=== PATIENT | female | born 1930 | race African-American/Black ===

== ENCOUNTER 2017-10-02 13:20 | Inpatient (IN) | payer OTHER ==
[~2017-10-02] VITALS: Ht 170.2 cm; Wt 86.4 kg
[~2017-10-02 13:20] MED LIST: INSULIN; METFORMIN; VERAPAMIL
[2017-10-02] MEDS ORDERED: SODIUM CHLORIDE 0.9% 1,000 ML IV ONE (13:40)
[2017-10-02] MEDS ORDERED: SODIUM CHLORIDE 0.9% 1,000 ML IVB ONE (13:40)
[2017-10-02 14:37] LABS: Basophils # (auto) 0 uL; Basophils % (auto) 0.1 % (0.0-2.0); Eosinophils # (auto) 0 uL; Hematocrit 31.8 % (36.0-46.0); Lymphocytes # (auto) 0.8 uL; Lymphocytes % (auto) 4.8 % (10.0-50.0); Mean Corpuscular Hemoglobin 30.2 pg (28.0-32.0); Mean Corpuscular Hgb Conc. 31.5 g/dL (32.0-36.0); Monocytes # (auto) 0.5 uL; Neutrophils # (auto) 16.3 uL; Neutrophils % (auto) 92.1 % (37.0-80.0); Nucleated Red Blood Cells % 0.1 %; Platelet Count (auto) 376 10^3/uL (140-450); Red Blood Cells 3.32 10^6/uL (4.0-5.20); Red Cell Distribution Width 17.6 % (11.8-14.3); White Blood Cell 17.7 10^3/uL (4.4-10.8)
[2017-10-02 14:47] LABS: Urine Bacteria MOD /hpf (None Seen); Urine Blood 1+ /uL (Negative); Urine Mucus FEW (None Seen); Urine Specific Gravity 1.029 (1.001-1.035); Urine WBC 280 /hpf (0 - 5)
[2017-10-02 14:51] LABS: INR 1.16 (0.9-1.15); Partial Thromboplastin Time 23.6 sec (22.64-33.71); Prothrombin Time 12.7 sec (9.37-12.3)
[2017-10-02 14:57] LABS: Lactic Acid w/Reflex 2.6 mmol/L (0.4-2.0)
[2017-10-02] MEDS: ACCU-CHEK COMFORT CURVE STRIP VI SCH ×6 (15:00→22:30)
[2017-10-02] MEDS ORDERED: DEXTROSE (50%) 50ML SYRG IV PRN (15:00)
[2017-10-02] MEDS: InsuLIN R (HUMAN) 100 UNITS in SODIUM CHL 0.9% 99 ML IV SCH (15:35)
[2017-10-02 15:57] LABS: Albumin 1.7 g/dL (3.4-5.0); Anion Gap 12 (5-15); Blood Urea Nitrogen 36 mg/dL (7-18); Calcium 10.6 mg/dL (8.5-10.1); Carbon Dioxide 28 mmol/L (21-32); Chloride 99 mmol/L (98-107); Sodium 139 mmol/L (136-145)
[2017-10-02 15:59] LABS: Alanine Aminotransferase 13 U/L (13-56); Aspartate Aminotransferase 19 U/L (15-37); BUN/Creatinine Ratio 37.5; GFR African American 71 mL/min; GFR Non-African American 58 mL/min
[2017-10-02 16:02] LABS: Alkaline Phosphatase 94 U/L (45-117); Bilirubin, Total 0.6 mg/dL (0.2-1.0); Total Protein 6.3 g/dL (6.4-8.2)
[2017-10-02 16:09] LABS: Glucose 468 mg/dL (74-106)
[2017-10-02] MEDS ORDERED: VANCOMYCIN 1GM/250ML 250 ML IV ONE (16:15)
[2017-10-02] MEDS ORDERED: LEVOFLOXACIN 500MG 100 ML IV ONE (16:15)
[2017-10-02] MEDS ORDERED: VANCOMYCIN PER PHARMACY 0 MG IV SCH (17:00)
[2017-10-02] MEDS ORDERED: NITROGLYCERIN 0.4 MG SL TAB SL PRN (17:15)
[2017-10-02] MEDS ORDERED: ONDANSETRON HCL 4 MG/2 ML VIAL IV PRN (17:15)
[2017-10-02] MEDS ORDERED: ACETAMINOPHEN 325 MG TAB PO PRN (17:15)
[2017-10-02] MEDS ORDERED: POTASSIUM CHLORIDE 20 MEQ, LIDOCAINE 1% (LOCAL ANESTH.) 2 ML in SODIUM CHL 0.9% 100 ML IV ONE (17:15)
[2017-10-02] MEDS ORDERED: MULTIPLE VITAMIN TAB PO ONE (17:30)
[2017-10-02] MEDS ORDERED: ASPirin-EC 81 mg tab PO ONE (17:30)
[2017-10-02] MEDS ORDERED: ENOXAPARIN SOD 40 MG/0.4 ML SYRINGE SC ONE (17:30)
[2017-10-02] MEDS ORDERED: ZINC SULFATE 220 MG CAP PO ONE (17:30)
[2017-10-02 19:38] LABS: Lactic Acid w/Reflex 5.7 mmol/L (0.4-2.0)
[2017-10-02] MEDS: Boost Glucose Control 8 Ounces PO SCH ×2 (20:10→22:00)
[2017-10-02] MEDS: ATORVASTATIN 20 MG TAB PO SCH (22:12)
[2017-10-02] MEDS: ASCORBIC ACID 500 MG TAB PO SCH (22:13)
[2017-10-02] MEDS: FAMOTIDINE 20 MG TAB PO SCH (22:13)
[2017-10-03] MEDS: ACCU-CHEK COMFORT CURVE STRIP VI SCH ×9 (01:38→22:31)
[2017-10-03 03:37] LABS: Basophils # (auto) 0.1 uL; Basophils % (auto) 0.3 % (0.0-2.0); Eosinophils # (auto) 0.1 uL; Eosinophils % (auto) 0.3 % (0.0-7.0); Lymphocytes # (auto) 0.9 uL; Lymphocytes % (auto) 4.8 % (10.0-50.0); Mean Corpuscular Hemoglobin 30.5 pg (28.0-32.0); Mean Corpuscular Hgb Conc. 32.1 g/dL (32.0-36.0); Monocytes # (auto) 0.6 uL; Monocytes % (auto) 3.3 % (0.0-12.0); Neutrophils # (auto) 16.7 uL; Neutrophils % (auto) 91.3 % (37.0-80.0); Platelet Count (auto) 342 10^3/uL (140-450); Red Blood Cells 2.94 10^6/uL (4.0-5.20); White Blood Cell 18.3 10^3/uL (4.4-10.8)
[2017-10-03 03:53] LABS: Albumin 1.5 g/dL (3.4-5.0); BUN/Creatinine Ratio 59.3; Calcium 9.9 mg/dL (8.5-10.1)
[2017-10-03 03:55] LABS: Potassium 2.8 mmol/L (3.5-5.1)
[2017-10-03 03:56] LABS: Bilirubin, Total 0.5 mg/dL (0.2-1.0); Total Protein 5.6 g/dL (6.4-8.2)
[2017-10-03] MEDS: VANCOMYCIN 1GM/250ML 250 ML IV SCH ×2 (04:28→16:58)
[2017-10-03] MEDS: POTASSIUM CHL 20MEQ/100ML 100 ML IV SCH ×2 (04:30→07:20)
[2017-10-03] MEDS: HYDROcodone-ACET 5/325MG TAB PO PRN ×3 (05:30→18:00)
[2017-10-03] MEDS: Boost Glucose Control 8 Ounces PO SCH ×4 (06:00→22:00)
[2017-10-03 09:20] VITALS: BP 115/59
[2017-10-03 09:59] VITALS: BP 115/59
[2017-10-03 10:00] VITALS: BP 115/59
[2017-10-03] MEDS: ASCORBIC ACID 500 MG TAB PO SCH ×2 (10:00→22:00)
[2017-10-03] MEDS ORDERED: ACCU-CHEK COMFORT CURVE STRIP VI SCH ×2 (10:00→18:00)
[2017-10-03] MEDS ORDERED: LEVOFLOXACIN 500MG 100 ML IV SCH (10:00)
[2017-10-03] MEDS: MULTIPLE VITAMIN TAB PO SCH (10:00)
[2017-10-03] MEDS: ASPirin-EC 81 mg tab PO SCH (10:00)
[2017-10-03] MEDS: ZINC SULFATE 220 MG CAP PO SCH (10:00)
[2017-10-03] MEDS: ENOXAPARIN SOD 40 MG/0.4 ML SYRINGE SC SCH (10:00)
[2017-10-03] MEDS: FAMOTIDINE 20 MG TAB PO SCH ×2 (10:00→22:00)
[2017-10-03] MEDS: InsuLIN R (HUMAN) 100 UNITS in SODIUM CHL 0.9% 99 ML IV SCH (12:05)
[2017-10-03 12:22] VITALS: BP 120/60
[2017-10-03] MEDS ORDERED: DEXTROSE (50%) 50ML SYRG IV PRN (14:45)
[2017-10-03] MEDS ORDERED: InsuLIN REG 1unit/0.01ml Soln (100units/ml) SC SCH (17:00)
[2017-10-03 17:19] VITALS: BP 122/67
[2017-10-03 22:00] VITALS: BP 147/71
[2017-10-03] MEDS: ATORVASTATIN 20 MG TAB PO SCH (22:00)
[2017-10-03] MEDS: ALBUMIN 25% 100 ML IV SCH (22:26)
[2017-10-03] MEDS: InsuLIN REG 1unit/0.01ml Soln (100units/ml) SC SCH (22:31)
[2017-10-04] MEDS: ACCU-CHEK COMFORT CURVE STRIP VI SCH ×5 (02:00→18:08)
[2017-10-04] MEDS: InsuLIN REG 1unit/0.01ml Soln (100units/ml) SC SCH ×5 (02:02→18:08)
[2017-10-04 04:12] LABS: Basophils # (auto) 0 uL; Basophils % (auto) 0.1 % (0.0-2.0); Eosinophils # (auto) 0.1 uL; Eosinophils % (auto) 0.6 % (0.0-7.0); Hematocrit 28.4 % (36.0-46.0); Lymphocytes # (auto) 1.1 uL; Lymphocytes % (auto) 6.5 % (10.0-50.0); Mean Corpuscular Hemoglobin 30.3 pg (28.0-32.0); Mean Corpuscular Hgb Conc. 31.7 g/dL (32.0-36.0); Mean Corpuscular Volume 95.9 fL (80.0-100.0); Monocytes # (auto) 0.4 uL; Monocytes % (auto) 2.5 % (0.0-12.0); Neutrophils # (auto) 15.1 uL; Neutrophils % (auto) 90.3 % (37.0-80.0); Nucleated Red Blood Cells % 0.1 %; Platelet Count (auto) 328 10^3/uL (140-450); Red Blood Cells 2.96 10^6/uL (4.0-5.20); Red Cell Distribution Width 16.9 % (11.8-14.3); White Blood Cell 16.7 10^3/uL (4.4-10.8)
[2017-10-04] MEDS: VANCOMYCIN 1GM/250ML 250 ML IV SCH ×2 (04:55→16:00)
[2017-10-04 05:00] VITALS: BP 150/70
[2017-10-04] MEDS: Boost Glucose Control 8 Ounces PO SCH ×4 (06:00→22:00)
[2017-10-04] MEDS: ALBUMIN 25% 100 ML IV SCH ×3 (06:22→23:44)
[2017-10-04 07:38] LABS: Albumin 1.9 g/dL (3.4-5.0); BUN/Creatinine Ratio 50.8; Bilirubin, Total 0.5 mg/dL (0.2-1.0); Calcium 10.4 mg/dL (8.5-10.1); Potassium 3.1 mmol/L (3.5-5.1); Total Protein 5.5 g/dL (6.4-8.2)
[2017-10-04 08:00] VITALS: BP 127/66
[2017-10-04 09:25] VITALS: BP 127/66
[2017-10-04] MEDS: ENOXAPARIN SOD 40 MG/0.4 ML SYRINGE SC SCH (10:00)
[2017-10-04] MEDS: ASCORBIC ACID 500 MG TAB PO SCH ×2 (10:00→22:00)
[2017-10-04] MEDS: ZINC SULFATE 220 MG CAP PO SCH (10:00)
[2017-10-04] MEDS: MULTIPLE VITAMIN TAB PO SCH (10:00)
[2017-10-04] MEDS: ASPirin-EC 81 mg tab PO SCH (10:00)
[2017-10-04] MEDS ORDERED: PANTOPRAZOLE 40 MG/10 ML VIAL IV ONE (11:15)
[2017-10-04] MEDS ORDERED: TPN PER PHARMACY 0 ML IV SCH (12:45)
[2017-10-04 12:51] VITALS: BP 151/77
[2017-10-04] MEDS: MORPHINE SULFATE 4 MG/ML SYR/VIAL IV PRN ×2 (13:19→23:42)
[2017-10-04 13:28] LABS: Magnesium 1.2 mg/dL (1.6-2.6)
[2017-10-04] MEDS ORDERED: PPN PER PHARMACY 500 ML IV SCH (13:30)
[2017-10-04] MEDS ORDERED: POTASSIUM PHOSP 26.4MEQ(18MMOL) IN NS 100 ML IV ONE (14:00)
[2017-10-04] MEDS: MEROPENEM 1gm/20ml IVPUSH 20 ML IV SCH ×2 (14:23→23:44)
[2017-10-04 17:14] VITALS: BP 140/59
[2017-10-04] MEDS ORDERED: DEXTROSE (50%) 50ML SYRG IV SCH (18:00)
[2017-10-04] MEDS: MAGNESIUM SULFATE 1GM/100ML 100 ML IV SCH ×2 (19:14→21:17)
[2017-10-04] MEDS ORDERED: PPN PER PHARMACY IV SCH ×8 (20:00)
[2017-10-04] MEDS ORDERED: MAGNESIUM SULFATE 1GM/100ML 100 ML IV ONE (21:11)
[2017-10-04] MEDS: ATORVASTATIN 20 MG TAB PO SCH (22:00)
[2017-10-04] MEDS ORDERED: LINEZOLID 600MG/300ML 300 ML IV SCH (22:00)
[2017-10-04 22:02] VITALS: BP 147/56
[2017-10-05] MEDS: InsuLIN REG 1unit/0.01ml Soln (100units/ml) SC SCH ×4 (00:53→17:51)
[2017-10-05] MEDS: VANCOMYCIN 1GM/250ML 250 ML IV SCH ×2 (04:14→17:21)
[2017-10-05 05:11] VITALS: BP 161/78
[2017-10-05] MEDS: ENALAPRILAT 1.25 MG/ML-1ML VIAL IV PRN (05:19)
[2017-10-05] MEDS: MEROPENEM 1gm/20ml IVPUSH 20 ML IV SCH ×3 (05:34→21:27)
[2017-10-05] MEDS: ALBUMIN 25% 100 ML IV SCH ×3 (05:35→21:53)
[2017-10-05] MEDS: MORPHINE SULFATE 4 MG/ML SYR/VIAL IV PRN ×4 (05:50→20:10)
[2017-10-05] MEDS: Boost Glucose Control 8 Ounces PO SCH ×4 (06:00→22:00)
[2017-10-05] MEDS: ACCU-CHEK COMFORT CURVE STRIP VI SCH ×4 (06:21→17:50)
[2017-10-05 08:35] LABS: Basophils # (auto) 0 uL; Basophils % (auto) 0.1 % (0.0-2.0); Eosinophils # (auto) 0.2 uL; Hemoglobin 7.8 g/dL (12.2-16.2); Monocytes # (auto) 0.3 uL; Neutrophils % (auto) 88.1 % (37.0-80.0); Nucleated Red Blood Cells % 0.1 %; Platelet Count (auto) 262 10^3/uL (140-450); White Blood Cell 13.1 10^3/uL (4.4-10.8)
[2017-10-05 08:37] LABS: Eosinophils % (auto) 1.2 % (0.0-7.0); Hematocrit 25.1 % (36.0-46.0); Lymphocytes # (auto) 1.1 uL; Lymphocytes % (auto) 8.2 % (10.0-50.0); Mean Corpuscular Hemoglobin 29.7 pg (28.0-32.0); Mean Corpuscular Hgb Conc. 31.1 g/dL (32.0-36.0); Mean Corpuscular Volume 95.4 fL (80.0-100.0); Monocytes % (auto) 2.4 % (0.0-12.0); Neutrophils # (auto) 11.6 uL; Red Blood Cells 2.63 10^6/uL (4.0-5.20); Red Cell Distribution Width 17.2 % (11.8-14.3)
[2017-10-05 08:52] LABS: Albumin 2.8 g/dL (3.4-5.0); BUN/Creatinine Ratio 34.5; Bilirubin, Total 0.6 mg/dL (0.2-1.0); Calcium 9.9 mg/dL (8.5-10.1); Magnesium 1.6 mg/dL (1.6-2.6); Phosphorus 1.7 mg/dL (2.5-4.90); Pre Albumin 6.4 mg/dL (20.0-40.0); Total Protein 5.5 g/dL (6.4-8.2)
[2017-10-05 08:56] LABS: Potassium 2.7 mmol/L (3.5-5.1)
[2017-10-05] MEDS: ZINC SULFATE 220 MG CAP PO SCH (09:16)
[2017-10-05] MEDS: MULTIPLE VITAMIN TAB PO SCH (09:17)
[2017-10-05] MEDS: ASPirin-EC 81 mg tab PO SCH (09:17)
[2017-10-05] MEDS: ASCORBIC ACID 500 MG TAB PO SCH ×2 (09:17→22:00)
[2017-10-05 09:18] VITALS: BP 147/67
[2017-10-05] MEDS: ENOXAPARIN SOD 30 MG/0.3 ML SYRINGE SC SCH (09:18)
[2017-10-05] MEDS: PANTOPRAZOLE 40 MG/10 ML VIAL IV SCH (09:18)
[2017-10-05] MEDS ORDERED: POTASSIUM PHOSP 26.4MEQ(18MMOL) IN NS 100 ML IV ONE (10:15)
[2017-10-05] MEDS: HYDROcodone-ACET 5/325MG TAB PO PRN (10:58)
[2017-10-05] MEDS: HYDROcodone-ACET 10/325MG TAB PO PRN ×3 (11:21→18:54)
[2017-10-05 13:14] VITALS: BP 116/80
[2017-10-05 16:58] VITALS: BP 94/58
[2017-10-05] MEDS: PRO-STAT 64 30ML PO SCH (18:54)
[2017-10-05] MEDS ORDERED: MAGNESIUM SULF IV NR ×8 (20:00)
[2017-10-05] MEDS ORDERED: POTASSIUM PHOSPHATE IV NR ×8 (20:00)
[2017-10-05] MEDS ORDERED: [UNRECOGNIZED DRUG - OTHER] IV NR ×8 (20:00)
[2017-10-05] MEDS ORDERED: FAT EMULSION IV NR ×8 (20:00)
[2017-10-05 21:29] VITALS: BP 155/73
[2017-10-05] MEDS: ATORVASTATIN 20 MG TAB PO SCH (22:00)
[2017-10-06] MEDS: MORPHINE SULFATE 4 MG/ML SYR/VIAL IV PRN ×5 (00:16→18:22)
[2017-10-06] MEDS: ACCU-CHEK COMFORT CURVE STRIP VI SCH ×4 (00:29→18:27)
[2017-10-06] MEDS: InsuLIN REG 1unit/0.01ml Soln (100units/ml) SC SCH ×4 (00:30→18:26)
[2017-10-06] MEDS: VANCOMYCIN 1GM/250ML 250 ML IV SCH ×2 (03:48→18:23)
[2017-10-06 05:10] VITALS: BP 148/71
[2017-10-06] MEDS: MEROPENEM 1gm/20ml IVPUSH 20 ML IV SCH ×2 (05:46→14:00)
[2017-10-06] MEDS: Boost Glucose Control 8 Ounces PO SCH ×3 (05:51→18:00)
[2017-10-06] MEDS: ALBUMIN 25% 100 ML IV SCH ×2 (05:51→15:30)
[2017-10-06 06:20] LABS: Basophils # (auto) 0 uL; Eosinophils # (auto) 0.2 uL; Hemoglobin 8.2 g/dL (12.2-16.2); Neutrophils # (auto) 10.2 uL; Red Blood Cells 2.72 10^6/uL (4.0-5.20)
[2017-10-06 06:22] LABS: Basophils % (auto) 0.1 % (0.0-2.0); Eosinophils % (auto) 1.5 % (0.0-7.0); Hematocrit 25.6 % (36.0-46.0); Lymphocytes # (auto) 1.1 uL; Lymphocytes % (auto) 9.4 % (10.0-50.0); Mean Corpuscular Hemoglobin 30.3 pg (28.0-32.0); Mean Corpuscular Hgb Conc. 32.2 g/dL (32.0-36.0); Mean Corpuscular Volume 94.2 fL (80.0-100.0); Monocytes # (auto) 0.3 uL; Monocytes % (auto) 2.7 % (0.0-12.0); Neutrophils % (auto) 86.3 % (37.0-80.0); Platelet Count (auto) 259 10^3/uL (140-450); Red Cell Distribution Width 16.6 % (11.8-14.3); White Blood Cell 11.8 10^3/uL (4.4-10.8)
[2017-10-06 06:36] LABS: Albumin 2.8 g/dL (3.4-5.0); BUN/Creatinine Ratio 42.6; Bilirubin, Total 0.6 mg/dL (0.2-1.0); Calcium 9.6 mg/dL (8.5-10.1); Magnesium 1.7 mg/dL (1.6-2.6); Phosphorus 2.8 mg/dL (2.5-4.90); Potassium 3.2 mmol/L (3.5-5.1); Total Protein 5.5 g/dL (6.4-8.2)
[2017-10-06 08:00] VITALS: BP 125/87
[2017-10-06] MEDS: PRO-STAT 64 30ML PO SCH ×2 (08:00→18:00)
[2017-10-06 09:19] VITALS: BP 125/87
[2017-10-06] MEDS: ASCORBIC ACID 500 MG TAB PO SCH (10:24)
[2017-10-06] MEDS: ASPirin-EC 81 mg tab PO SCH (10:24)
[2017-10-06] MEDS: ZINC SULFATE 220 MG CAP PO SCH (10:24)
[2017-10-06] MEDS: MULTIPLE VITAMIN TAB PO SCH (10:24)
[2017-10-06] MEDS: ENOXAPARIN SOD 30 MG/0.3 ML SYRINGE SC SCH (10:25)
[2017-10-06] MEDS: PANTOPRAZOLE 40 MG/10 ML VIAL IV SCH (10:25)
[2017-10-06] MEDS: POTASSIUM CHL 20MEQ/100ML 100 ML IV SCH ×2 (12:00→15:23)
[2017-10-06 13:00] VITALS: BP 123/90
[2017-10-06 17:28] VITALS: BP 105/89
[2017-10-06] MEDS ORDERED: POTASSIUM CHL 20MEQ/100ML 100 ML IV SCH (18:00)
[2017-10-06] MEDS ORDERED: PPN PER PHARMACY IV NR ×22 (20:00→21:45)
[2017-10-06 22:00] VITALS: BP 140/107
[2017-10-07] MEDS: ATORVASTATIN 20 MG TAB PO SCH ×2 (00:18→21:43)
[2017-10-07] MEDS: ASCORBIC ACID 500 MG TAB PO SCH ×3 (00:18→21:43)
[2017-10-07] MEDS: MEROPENEM 1gm/20ml IVPUSH 20 ML IV SCH ×4 (00:19→21:37)
[2017-10-07] MEDS: ALBUMIN 25% 100 ML IV SCH ×4 (00:21→21:40)
[2017-10-07] MEDS: Boost Glucose Control 8 Ounces PO SCH ×5 (00:21→21:43)
[2017-10-07] MEDS: MORPHINE SULFATE 4 MG/ML SYR/VIAL IV PRN ×2 (03:30→04:52)
[2017-10-07 05:00] VITALS: BP 126/70
[2017-10-07] MEDS: ACCU-CHEK COMFORT CURVE STRIP VI SCH ×4 (06:00→18:25)
[2017-10-07] MEDS: InsuLIN REG 1unit/0.01ml Soln (100units/ml) SC SCH ×4 (06:00→18:00)
[2017-10-07] MEDS: VANCOMYCIN 1GM/250ML 250 ML IV SCH ×2 (06:13→18:23)
[2017-10-07 07:07] LABS: Albumin 2.6 g/dL (3.4-5.0); BUN/Creatinine Ratio 37.5; Bilirubin, Total 0.6 mg/dL (0.2-1.0); Calcium 8.8 mg/dL (8.5-10.1); Magnesium 1.8 mg/dL (1.6-2.6); Phosphorus 2.2 mg/dL (2.5-4.90); Potassium 3.7 mmol/L (3.5-5.1); Total Protein 5.6 g/dL (6.4-8.2)
[2017-10-07 08:00] VITALS: BP 156/80
[2017-10-07] MEDS: PRO-STAT 64 30ML PO SCH ×2 (08:00→18:00)
[2017-10-07 09:00] VITALS: BP 156/80
[2017-10-07] MEDS: PANTOPRAZOLE 40 MG/10 ML VIAL IV SCH (10:00)
[2017-10-07] MEDS: MULTIPLE VITAMIN TAB PO SCH (10:34)
[2017-10-07] MEDS: ZINC SULFATE 220 MG CAP PO SCH (10:34)
[2017-10-07] MEDS: ASPirin-EC 81 mg tab PO SCH (10:34)
[2017-10-07] MEDS: ENOXAPARIN SOD 30 MG/0.3 ML SYRINGE SC SCH (10:43)
[2017-10-07 12:00] VITALS: BP 121/62
[2017-10-07 12:53] LABS: INR 1.25 (0.9-1.15); Partial Thromboplastin Time 42.9 sec (22.64-33.71); Prothrombin Time 13.7 sec (9.37-12.3)
[2017-10-07] MEDS ORDERED: LIDOCAINE 1% HCL (LOCAL ANESTH.) INJ 20ML MDV ID ONE (15:00)
[2017-10-07 16:00] VITALS: BP 143/78
[2017-10-07] MEDS ORDERED: PPN PER PHARMACY IV NR ×11 (20:00)
[2017-10-07] MEDS: SODIUM CHLOR 0.9% PF (SALINE LOCK) 10ML VIAL IV SCH (21:44)
[2017-10-07 22:00] VITALS: BP 160/84
[2017-10-08 05:00] VITALS: BP 163/74
[2017-10-08] MEDS: MEROPENEM 1gm/20ml IVPUSH 20 ML IV SCH (05:46)
[2017-10-08] MEDS: ALBUMIN 25% 100 ML IV SCH ×3 (05:47→22:51)
[2017-10-08] MEDS: VANCOMYCIN 1GM/250ML 250 ML IV SCH ×2 (05:48→18:00)
[2017-10-08] MEDS: Boost Glucose Control 8 Ounces PO SCH ×4 (05:48→22:45)
[2017-10-08] MEDS: ACCU-CHEK COMFORT CURVE STRIP VI SCH ×5 (06:00→23:30)
[2017-10-08] MEDS: InsuLIN REG 1unit/0.01ml Soln (100units/ml) SC SCH ×5 (06:00→23:31)
[2017-10-08 07:43] LABS: Basophils # (auto) 0 uL; Basophils % (auto) 0.4 % (0.0-2.0); Eosinophils # (auto) 0.2 uL; Eosinophils % (auto) 1.1 % (0.0-7.0); Hematocrit 28.5 % (36.0-46.0); Hemoglobin 9.1 g/dL (12.2-16.2); Lymphocytes # (auto) 1.6 uL; Lymphocytes % (auto) 12.1 % (10.0-50.0); Mean Corpuscular Hemoglobin 30.6 pg (28.0-32.0); Mean Corpuscular Hgb Conc. 32.1 g/dL (32.0-36.0); Mean Corpuscular Volume 95.3 fL (80.0-100.0); Monocytes # (auto) 0.5 uL; Monocytes % (auto) 3.8 % (0.0-12.0); Neutrophils # (auto) 11.2 uL; Neutrophils % (auto) 82.6 % (37.0-80.0); Nucleated Red Blood Cells % 0.7 %; Platelet Count (auto) 297 10^3/uL (140-450); Red Blood Cells 2.99 10^6/uL (4.0-5.20); Red Cell Distribution Width 16.9 % (11.8-14.3); White Blood Cell 13.6 10^3/uL (4.4-10.8)
[2017-10-08 08:00] LABS: Albumin 3.2 g/dL (3.4-5.0); BUN/Creatinine Ratio 39.1; Calcium 9.1 mg/dL (8.5-10.1); Potassium 3.4 mmol/L (3.5-5.1)
[2017-10-08] MEDS: PRO-STAT 64 30ML PO SCH ×2 (08:00→17:32)
[2017-10-08 08:09] LABS: Bilirubin, Total 1.2 mg/dL (0.2-1.0)
[2017-10-08 09:00] VITALS: BP 153/91
[2017-10-08] MEDS ORDERED: TPN PER PHARMACY IV SCH (09:45)
[2017-10-08] MEDS ORDERED: MAGNESIUM SULFATE 1GM/100ML 100 ML IV ONE (09:45)
[2017-10-08] MEDS ORDERED: POTASSIUM CHL 10MEQ/100ML IV ONE (09:45)
[2017-10-08] MEDS: ZINC SULFATE 220 MG CAP PO SCH (10:00)
[2017-10-08] MEDS: MULTIPLE VITAMIN TAB PO SCH (10:00)
[2017-10-08] MEDS: ASPirin-EC 81 mg tab PO SCH (10:00)
[2017-10-08] MEDS: ASCORBIC ACID 500 MG TAB PO SCH ×2 (10:00→22:44)
[2017-10-08] MEDS: PANTOPRAZOLE 40 MG/10 ML VIAL IV SCH (10:23)
[2017-10-08] MEDS: SODIUM CHLOR 0.9% PF (SALINE LOCK) 10ML VIAL IV SCH ×2 (10:23→22:44)
[2017-10-08] MEDS: ENOXAPARIN SOD 30 MG/0.3 ML SYRINGE SC SCH (10:24)
[2017-10-08] MEDS ORDERED: cefTRIAXone 1GM/10ml IVPUSH 10 ML IV ONE (10:30)
[2017-10-08 12:24] VITALS: BP 120/53
[2017-10-08] MEDS: metroNIDAZOLE 500MG/100ML 100 ML IV SCH ×2 (14:38→22:45)
[2017-10-08 16:47] VITALS: BP 189/89
[2017-10-08] MEDS: ENALAPRILAT 1.25 MG/ML-1ML VIAL IV PRN (16:56)
[2017-10-08] MEDS: MORPHINE SULFATE 4 MG/ML SYR/VIAL IV PRN (18:10)
[2017-10-08] MEDS ORDERED: TPN PER PHARMACY IV NR ×9 (20:00)
[2017-10-08 22:00] VITALS: BP 168/71
[2017-10-08] MEDS: ATORVASTATIN 20 MG TAB PO SCH (22:44)
[2017-10-09 04:50] VITALS: BP 152/80
[2017-10-09] MEDS: VANCOMYCIN 1GM/250ML 250 ML IV SCH ×2 (05:44→18:59)
[2017-10-09] MEDS: Boost Glucose Control 8 Ounces PO SCH ×4 (05:45→22:00)
[2017-10-09] MEDS: metroNIDAZOLE 500MG/100ML 100 ML IV SCH ×3 (05:55→22:28)
[2017-10-09] MEDS: ALBUMIN 25% 100 ML IV SCH (05:57)
[2017-10-09] MEDS: ACCU-CHEK COMFORT CURVE STRIP VI SCH ×3 (06:06→18:00)
[2017-10-09] MEDS: InsuLIN REG 1unit/0.01ml Soln (100units/ml) SC SCH ×3 (06:06→18:00)
[2017-10-09 08:06] LABS: Potassium 3.3 mmol/L (3.5-5.1)
[2017-10-09 08:08] LABS: Basophils # (auto) 0.1 uL; Basophils % (auto) 1.1 % (0.0-2.0); Lymphocytes # (auto) 1.1 uL; Lymphocytes % (auto) 11.7 % (10.0-50.0); Nucleated Red Blood Cells % 0.1 %
[2017-10-09 08:11] LABS: Eosinophils # (auto) 0.2 uL; Eosinophils % (auto) 1.6 % (0.0-7.0); Hematocrit 24.8 % (36.0-46.0); Hemoglobin 8.3 g/dL (12.2-16.2); Mean Corpuscular Hemoglobin 31.1 pg (28.0-32.0); Mean Corpuscular Hgb Conc. 33.3 g/dL (32.0-36.0); Mean Corpuscular Volume 93.4 fL (80.0-100.0); Monocytes # (auto) 0.3 uL; Monocytes % (auto) 3.5 % (0.0-12.0); Neutrophils # (auto) 7.8 uL; Neutrophils % (auto) 82.1 % (37.0-80.0); Platelet Count (auto) 303 10^3/uL (140-450); Red Blood Cells 2.65 10^6/uL (4.0-5.20); Red Cell Distribution Width 16.4 % (11.8-14.3); White Blood Cell 9.5 10^3/uL (4.4-10.8)
[2017-10-09 08:21] LABS: Albumin 3.2 g/dL (3.4-5.0); BUN/Creatinine Ratio 42.5; Calcium 8.9 mg/dL (8.5-10.1); Magnesium 1.7 mg/dL (1.6-2.6)
[2017-10-09 08:26] LABS: Bilirubin, Total 0.7 mg/dL (0.2-1.0); Phosphorus 2.4 mg/dL (2.5-4.90); Total Protein 5.4 g/dL (6.4-8.2)
[2017-10-09 09:00] VITALS: BP 151/81
[2017-10-09] MEDS: PANTOPRAZOLE 40 MG/10 ML VIAL IV SCH (09:27)
[2017-10-09] MEDS: MULTIPLE VITAMIN TAB PO SCH (09:27)
[2017-10-09] MEDS: ZINC SULFATE 220 MG CAP PO SCH (09:27)
[2017-10-09] MEDS: ASPirin-EC 81 mg tab PO SCH (09:27)
[2017-10-09] MEDS: ASCORBIC ACID 500 MG TAB PO SCH ×3 (09:27→22:29)
[2017-10-09] MEDS: SODIUM CHLOR 0.9% PF (SALINE LOCK) 10ML VIAL IV SCH ×2 (09:27→22:29)
[2017-10-09] MEDS: cefTRIAXone 1GM/10ml IVPUSH 10 ML IV SCH (09:28)
[2017-10-09] MEDS: PRO-STAT 64 30ML PO SCH ×2 (09:28→18:00)
[2017-10-09] MEDS: ENOXAPARIN SOD 30 MG/0.3 ML SYRINGE SC SCH (09:30)
[2017-10-09] MEDS ORDERED: POTASSIUM PHOSPHATE 44 MEQ in D5W 5% 250 ML IV ONE (09:45)
[2017-10-09 13:00] VITALS: BP 157/82
[2017-10-09 17:00] VITALS: BP 146/83
[2017-10-09] MEDS ORDERED: TPN PER PHARMACY IV NR ×10 (20:00)
[2017-10-09 22:00] VITALS: BP 123/66
[2017-10-09] MEDS: ATORVASTATIN 20 MG TAB PO SCH ×2 (22:00→22:29)
[2017-10-10] MEDS: InsuLIN REG 1unit/0.01ml Soln (100units/ml) SC SCH ×5 (00:07→23:55)
[2017-10-10] MEDS: ACCU-CHEK COMFORT CURVE STRIP VI SCH ×5 (00:08→23:55)
[2017-10-10 05:51] VITALS: BP 155/76
[2017-10-10] MEDS: VANCOMYCIN 1GM/250ML 250 ML IV SCH ×2 (05:52→18:00)
[2017-10-10] MEDS: Boost Glucose Control 8 Ounces PO SCH ×4 (05:57→22:00)
[2017-10-10] MEDS: metroNIDAZOLE 500MG/100ML 100 ML IV SCH ×3 (07:02→22:01)
[2017-10-10 07:47] LABS: Albumin 3.4 g/dL (3.4-5.0); BUN/Creatinine Ratio 31.8; Bilirubin, Total 0.7 mg/dL (0.2-1.0); Calcium 8.9 mg/dL (8.5-10.1); Magnesium 1.8 mg/dL (1.6-2.6); Phosphorus 2.1 mg/dL (2.5-4.90); Potassium 3.4 mmol/L (3.5-5.1); Total Protein 5.8 g/dL (6.4-8.2)
[2017-10-10 08:16] LABS: Basophils # (auto) 0.1 uL; Basophils % (auto) 0.7 % (0.0-2.0); Eosinophils # (auto) 0.2 uL; Eosinophils % (auto) 1.5 % (0.0-7.0); Hematocrit 25.3 % (36.0-46.0); Hemoglobin 8.2 g/dL (12.2-16.2); Lymphocytes # (auto) 1.7 uL; Lymphocytes % (auto) 14.6 % (10.0-50.0); Mean Corpuscular Hemoglobin 29.9 pg (28.0-32.0); Mean Corpuscular Hgb Conc. 32.3 g/dL (32.0-36.0); Mean Corpuscular Volume 92.5 fL (80.0-100.0); Monocytes # (auto) 0.6 uL; Monocytes % (auto) 5.5 % (0.0-12.0); Neutrophils # (auto) 8.9 uL; Neutrophils % (auto) 77.7 % (37.0-80.0); Nucleated Red Blood Cells % 0.1 %; Platelet Count (auto) 333 10^3/uL (140-450); Red Blood Cells 2.74 10^6/uL (4.0-5.20); Red Cell Distribution Width 16.4 % (11.8-14.3); White Blood Cell 11.4 10^3/uL (4.4-10.8)
[2017-10-10] MEDS: ZINC SULFATE 220 MG CAP PO SCH (09:18)
[2017-10-10] MEDS: PANTOPRAZOLE 40 MG/10 ML VIAL IV SCH (09:18)
[2017-10-10] MEDS: cefTRIAXone 1GM/10ml IVPUSH 10 ML IV SCH (09:18)
[2017-10-10] MEDS: PRO-STAT 64 30ML PO SCH ×2 (09:18→17:29)
[2017-10-10] MEDS: SODIUM CHLOR 0.9% PF (SALINE LOCK) 10ML VIAL IV SCH ×2 (09:18→22:01)
[2017-10-10] MEDS: ASCORBIC ACID 500 MG TAB PO SCH ×2 (09:19→22:04)
[2017-10-10] MEDS: MULTIPLE VITAMIN TAB PO SCH (09:19)
[2017-10-10] MEDS: ASPirin-EC 81 mg tab PO SCH (09:19)
[2017-10-10] MEDS: ENOXAPARIN SOD 30 MG/0.3 ML SYRINGE SC SCH (09:26)
[2017-10-10 09:28] VITALS: BP 168/83
[2017-10-10] MEDS ORDERED: POTASSIUM PHOSPHATE 44 MEQ in D5W 5% 250 ML IV ONE (09:30)
[2017-10-10 12:30] VITALS: BP 131/75
[2017-10-10 16:55] VITALS: BP 166/93
[2017-10-10] MEDS ORDERED: TPN PER PHARMACY IV NR ×11 (20:00)
[2017-10-10 21:39] VITALS: BP 121/54
[2017-10-10] MEDS: ATORVASTATIN 20 MG TAB PO SCH (22:04)
[2017-10-11 05:30] VITALS: BP 112/53
[2017-10-11] MEDS: metroNIDAZOLE 500MG/100ML 100 ML IV SCH ×3 (05:48→22:13)
[2017-10-11] MEDS: InsuLIN REG 1unit/0.01ml Soln (100units/ml) SC SCH ×3 (05:55→19:53)
[2017-10-11] MEDS: Boost Glucose Control 8 Ounces PO SCH ×4 (05:56→22:00)
[2017-10-11] MEDS: ACCU-CHEK COMFORT CURVE STRIP VI SCH ×3 (05:56→19:52)
[2017-10-11 06:43] LABS: Basophils # (auto) 0 uL; Basophils % (auto) 0.3 % (0.0-2.0); Eosinophils # (auto) 0.2 uL; Eosinophils % (auto) 1.5 % (0.0-7.0); Hematocrit 26.4 % (36.0-46.0); Hemoglobin 8.7 g/dL (12.2-16.2); Lymphocytes # (auto) 1.4 uL; Lymphocytes % (auto) 13.4 % (10.0-50.0); Mean Corpuscular Hemoglobin 30.9 pg (28.0-32.0); Mean Corpuscular Hgb Conc. 32.8 g/dL (32.0-36.0); Mean Corpuscular Volume 94.1 fL (80.0-100.0); Monocytes # (auto) 0.6 uL; Monocytes % (auto) 5.4 % (0.0-12.0); Neutrophils # (auto) 8.6 uL; Neutrophils % (auto) 79.4 % (37.0-80.0); Nucleated Red Blood Cells % 0.1 %; Platelet Count (auto) 405 10^3/uL (140-450); Red Cell Distribution Width 16.6 % (11.8-14.3); White Blood Cell 10.8 10^3/uL (4.4-10.8)
[2017-10-11 07:09] LABS: Albumin 3.2 g/dL (3.4-5.0); BUN/Creatinine Ratio 36.6; Bilirubin, Total 0.5 mg/dL (0.2-1.0); Calcium 8.9 mg/dL (8.5-10.1); Phosphorus 2.6 mg/dL (2.5-4.90); Potassium 4.1 mmol/L (3.5-5.1); Pre Albumin 9.3 mg/dL (20.0-40.0)
[2017-10-11] MEDS: PRO-STAT 64 30ML PO SCH ×2 (07:27→18:00)
[2017-10-11 08:00] VITALS: BP 179/79
[2017-10-11] MEDS: ENALAPRILAT 1.25 MG/ML-1ML VIAL IV PRN (08:40)
[2017-10-11] MEDS: cefTRIAXone 1GM/10ml IVPUSH 10 ML IV SCH (08:40)
[2017-10-11] MEDS: ASCORBIC ACID 500 MG TAB PO SCH ×3 (09:17→22:00)
[2017-10-11] MEDS: PANTOPRAZOLE 40 MG/10 ML VIAL IV SCH (09:17)
[2017-10-11] MEDS: ENOXAPARIN SOD 30 MG/0.3 ML SYRINGE SC SCH (09:17)
[2017-10-11] MEDS: ZINC SULFATE 220 MG CAP PO SCH ×2 (09:17→09:34)
[2017-10-11] MEDS: ASPirin-EC 81 mg tab PO SCH ×2 (09:18→09:34)
[2017-10-11] MEDS: SODIUM CHLOR 0.9% PF (SALINE LOCK) 10ML VIAL IV SCH ×2 (09:18→22:13)
[2017-10-11] MEDS: MULTIPLE VITAMIN TAB PO SCH ×2 (09:18→09:35)
[2017-10-11 12:00] VITALS: BP 163/73
[2017-10-11 16:50] VITALS: BP 138/68
[2017-10-11] MEDS ORDERED: TPN PER PHARMACY IV NR ×10 (20:00)
[2017-10-11] MEDS ORDERED: VANCOMYCIN 1GM/250ML 250 ML IV SCH (20:00)
[2017-10-11 21:39] VITALS: BP 121/54
[2017-10-11] MEDS: ATORVASTATIN 20 MG TAB PO SCH (22:00)
[2017-10-12] MEDS: InsuLIN REG 1unit/0.01ml Soln (100units/ml) SC SCH ×4 (00:50→17:47)
[2017-10-12 04:50] VITALS: BP 119/67
[2017-10-12] MEDS: Boost Glucose Control 8 Ounces PO SCH ×4 (06:00→22:00)
[2017-10-12] MEDS: metroNIDAZOLE 500MG/100ML 100 ML IV SCH ×3 (06:07→22:49)
[2017-10-12] MEDS: ACCU-CHEK COMFORT CURVE STRIP VI SCH ×4 (06:08→17:47)
[2017-10-12 07:26] LABS: Basophils # (auto) 0.1 uL; Hemoglobin 8.2 g/dL (12.2-16.2); Lymphocytes # (auto) 1.4 uL; Monocytes # (auto) 0.6 uL; Monocytes % (auto) 5.4 % (0.0-12.0)
[2017-10-12 07:28] LABS: Basophils % (auto) 0.7 % (0.0-2.0); Eosinophils # (auto) 0.2 uL; Eosinophils % (auto) 1.5 % (0.0-7.0); Hematocrit 25.3 % (36.0-46.0); Lymphocytes % (auto) 12.8 % (10.0-50.0); Mean Corpuscular Hemoglobin 30.3 pg (28.0-32.0); Mean Corpuscular Hgb Conc. 32.5 g/dL (32.0-36.0); Mean Corpuscular Volume 93.1 fL (80.0-100.0); Neutrophils # (auto) 8.5 uL; Neutrophils % (auto) 79.6 % (37.0-80.0); Platelet Count (auto) 454 10^3/uL (140-450); Red Blood Cells 2.72 10^6/uL (4.0-5.20); Red Cell Distribution Width 16.9 % (11.8-14.3); White Blood Cell 10.7 10^3/uL (4.4-10.8)
[2017-10-12 07:36] LABS: BUN/Creatinine Ratio 36.6; Bilirubin, Total 0.7 mg/dL (0.2-1.0); Calcium 8.7 mg/dL (8.5-10.1); Magnesium 1.8 mg/dL (1.6-2.6); Phosphorus 2.7 mg/dL (2.5-4.90); Potassium 4.3 mmol/L (3.5-5.1); Total Protein 5.8 g/dL (6.4-8.2)
[2017-10-12 08:00] VITALS: BP 151/90
[2017-10-12] MEDS: PRO-STAT 64 30ML PO SCH ×2 (08:00→17:47)
[2017-10-12 08:45] VITALS: BP 151/90
[2017-10-12] MEDS: cefTRIAXone 1GM/10ml IVPUSH 10 ML IV SCH (09:00)
[2017-10-12] MEDS: ASCORBIC ACID 500 MG TAB PO SCH ×2 (09:38→22:00)
[2017-10-12] MEDS: ASPirin-EC 81 mg tab PO SCH (09:42)
[2017-10-12] MEDS: ZINC SULFATE 220 MG CAP PO SCH (09:42)
[2017-10-12] MEDS: MULTIPLE VITAMIN TAB PO SCH (09:43)
[2017-10-12] MEDS: PANTOPRAZOLE 40 MG/10 ML VIAL IV SCH (09:46)
[2017-10-12] MEDS: ENOXAPARIN SOD 30 MG/0.3 ML SYRINGE SC SCH (09:46)
[2017-10-12] MEDS: SODIUM CHLOR 0.9% PF (SALINE LOCK) 10ML VIAL IV SCH ×2 (09:46→22:26)
[2017-10-12] MEDS: VANCOMYCIN 1GM/250ML 250 ML IV SCH (11:27)
[2017-10-12 12:59] VITALS: BP 138/85
[2017-10-12 16:30] VITALS: BP 101/66
[2017-10-12] MEDS ORDERED: TPN PER PHARMACY IV NR ×9 (20:00)
[2017-10-12 21:39] VITALS: BP 155/87
[2017-10-12] MEDS: ATORVASTATIN 20 MG TAB PO SCH (22:00)
[2017-10-13] VITALS (7 sets, daily range): BP systolic 121–163; BP diastolic 68–88
[2017-10-13] MEDS: ACCU-CHEK COMFORT CURVE STRIP VI SCH ×4 (00:10→17:58)
[2017-10-13] MEDS: InsuLIN REG 1unit/0.01ml Soln (100units/ml) SC SCH ×4 (00:11→17:57)
[2017-10-13] MEDS: Boost Glucose Control 8 Ounces PO SCH ×4 (05:31→22:22)
[2017-10-13] MEDS: metroNIDAZOLE 500MG/100ML 100 ML IV SCH ×3 (05:31→22:22)
[2017-10-13 06:49] LABS: Basophils # (auto) 0.1 uL; Basophils % (auto) 0.8 % (0.0-2.0); Eosinophils # (auto) 0.2 uL; Eosinophils % (auto) 1.5 % (0.0-7.0); Hematocrit 26.8 % (36.0-46.0); Hemoglobin 8.5 g/dL (12.2-16.2); Lymphocytes # (auto) 1.3 uL; Lymphocytes % (auto) 12.4 % (10.0-50.0); Mean Corpuscular Hemoglobin 29.5 pg (28.0-32.0); Mean Corpuscular Hgb Conc. 31.8 g/dL (32.0-36.0); Mean Corpuscular Volume 92.7 fL (80.0-100.0); Monocytes # (auto) 0.7 uL; Neutrophils # (auto) 8.2 uL; Neutrophils % (auto) 78.3 % (37.0-80.0); Platelet Count (auto) 414 10^3/uL (140-450); Red Blood Cells 2.89 10^6/uL (4.0-5.20); Red Cell Distribution Width 16.6 % (11.8-14.3); White Blood Cell 10.4 10^3/uL (4.4-10.8)
[2017-10-13 07:14] LABS: Albumin 2.9 g/dL (3.4-5.0); BUN/Creatinine Ratio 35.7; Bilirubin, Total 0.4 mg/dL (0.2-1.0); Calcium 8.7 mg/dL (8.5-10.1); Magnesium 1.9 mg/dL (1.6-2.6); Phosphorus 2.7 mg/dL (2.5-4.90); Potassium 4.1 mmol/L (3.5-5.1)
[2017-10-13] MEDS: PRO-STAT 64 30ML PO SCH ×2 (08:00→18:22)
[2017-10-13] MEDS: PANTOPRAZOLE 40 MG/10 ML VIAL IV SCH (09:45)
[2017-10-13] MEDS: cefTRIAXone 1GM/10ml IVPUSH 10 ML IV SCH (09:45)
[2017-10-13] MEDS: SODIUM CHLOR 0.9% PF (SALINE LOCK) 10ML VIAL IV SCH ×2 (09:46→22:22)
[2017-10-13] MEDS: ENOXAPARIN SOD 30 MG/0.3 ML SYRINGE SC SCH (09:46)
[2017-10-13] MEDS: ASPirin-EC 81 mg tab PO SCH (10:29)
[2017-10-13] MEDS: ASCORBIC ACID 500 MG TAB PO SCH ×3 (10:33→22:22)
[2017-10-13] MEDS: MULTIPLE VITAMIN TAB PO SCH (10:33)
[2017-10-13] MEDS: ZINC SULFATE 220 MG CAP PO SCH (10:33)
[2017-10-13] MEDS: ENALAPRILAT 1.25 MG/ML-1ML VIAL IV PRN (14:15)
[2017-10-13] MEDS ORDERED: TPN PER PHARMACY IV NR ×9 (20:00)
[2017-10-13] MEDS: ATORVASTATIN 20 MG TAB PO SCH ×2 (22:00→22:23)
[2017-10-14] VITALS (7 sets, daily range): BP systolic 126–156; BP diastolic 56–72
[2017-10-14] MEDS: ACCU-CHEK COMFORT CURVE STRIP VI SCH ×4 (00:15→17:54)
[2017-10-14] MEDS: InsuLIN REG 1unit/0.01ml Soln (100units/ml) SC SCH ×4 (06:00→17:53)
[2017-10-14] MEDS: Boost Glucose Control 8 Ounces PO SCH ×4 (06:36→21:56)
[2017-10-14] MEDS: metroNIDAZOLE 500MG/100ML 100 ML IV SCH ×3 (06:36→21:56)
[2017-10-14 07:37] LABS: Albumin 2.8 g/dL (3.4-5.0); Bilirubin, Total 0.4 mg/dL (0.2-1.0); Calcium 8.3 mg/dL (8.5-10.1); Magnesium 1.6 mg/dL (1.6-2.6); Potassium 3.9 mmol/L (3.5-5.1); Total Protein 5.7 g/dL (6.4-8.2)
[2017-10-14] MEDS: PRO-STAT 64 30ML PO SCH ×2 (08:00→18:54)
[2017-10-14] MEDS: PANTOPRAZOLE 40 MG/10 ML VIAL IV SCH (09:52)
[2017-10-14] MEDS: ASPirin-EC 81 mg tab PO SCH (09:52)
[2017-10-14] MEDS: ASCORBIC ACID 500 MG TAB PO SCH ×3 (09:52→22:00)
[2017-10-14] MEDS: cefTRIAXone 1GM/10ml IVPUSH 10 ML IV SCH (09:52)
[2017-10-14] MEDS: ZINC SULFATE 220 MG CAP PO SCH (09:52)
[2017-10-14] MEDS: ENOXAPARIN SOD 30 MG/0.3 ML SYRINGE SC SCH (09:52)
[2017-10-14] MEDS: SODIUM CHLOR 0.9% PF (SALINE LOCK) 10ML VIAL IV SCH ×2 (09:53→21:56)
[2017-10-14] MEDS: MULTIPLE VITAMIN TAB PO SCH (09:53)
[2017-10-14] MEDS: VANCOMYCIN 1GM/250ML 250 ML IV SCH (12:15)
[2017-10-14] MEDS ORDERED: TPN PER PHARMACY IV NR ×11 (20:00)
[2017-10-14] MEDS: ATORVASTATIN 20 MG TAB PO SCH ×2 (21:57→22:00)
[2017-10-15] MEDS: ACCU-CHEK COMFORT CURVE STRIP VI SCH ×4 (00:36→18:00)
[2017-10-15 05:22] VITALS: BP 137/85
[2017-10-15] MEDS: metroNIDAZOLE 500MG/100ML 100 ML IV SCH ×3 (05:38→21:56)
[2017-10-15] MEDS: Boost Glucose Control 8 Ounces PO SCH ×4 (05:38→21:57)
[2017-10-15] MEDS: InsuLIN REG 1unit/0.01ml Soln (100units/ml) SC SCH ×4 (06:05→18:00)
[2017-10-15 06:38] LABS: Basophils # (auto) 0.1 uL; Basophils % (auto) 0.9 % (0.0-2.0); Eosinophils # (auto) 0.1 uL; Hemoglobin 7.9 g/dL (12.2-16.2); Monocytes # (auto) 0.5 uL; Nucleated Red Blood Cells % 0.1 %; Red Blood Cells 2.54 10^6/uL (4.0-5.20)
[2017-10-15 06:43] LABS: Eosinophils % (auto) 1.7 % (0.0-7.0); Hematocrit 23.9 % (36.0-46.0); Lymphocytes # (auto) 0.9 uL; Lymphocytes % (auto) 12.8 % (10.0-50.0); Mean Corpuscular Hemoglobin 31.1 pg (28.0-32.0); Mean Corpuscular Hgb Conc. 32.9 g/dL (32.0-36.0); Mean Corpuscular Volume 94.4 fL (80.0-100.0); Monocytes % (auto) 7.1 % (0.0-12.0); Neutrophils # (auto) 5.8 uL; Neutrophils % (auto) 77.5 % (37.0-80.0); Platelet Count (auto) 391 10^3/uL (140-450); Red Cell Distribution Width 17.4 % (11.8-14.3); White Blood Cell 7.4 10^3/uL (4.4-10.8)
[2017-10-15 07:04] LABS: Alanine Aminotransferase < 6 U/L (13-56); Albumin 2.6 g/dL (3.4-5.0); Alkaline Phosphatase 40 U/L (45-117); Anion Gap 7 (5-15); Aspartate Aminotransferase 11 U/L (15-37); BUN/Creatinine Ratio 33.3; Bilirubin, Total 0.3 mg/dL (0.2-1.0); Blood Urea Nitrogen 17 mg/dL (7-18); Calcium 8.3 mg/dL (8.5-10.1); Carbon Dioxide 27 mmol/L (21-32); Chloride 105 mmol/L (98-107); GFR African American 147 mL/min; GFR Non-African American 121 mL/min; Glucose 134 mg/dL (74-106); Magnesium 1.9 mg/dL (1.6-2.6); Phosphorus 2.7 mg/dL (2.5-4.90); Potassium 3.8 mmol/L (3.5-5.1); Pre Albumin 11.4 mg/dL (20.0-40.0); Sodium 139 mmol/L (136-145); Total Protein 5.5 g/dL (6.4-8.2); Triglycerides 33 mg/dL (< 150)
[2017-10-15] MEDS: PRO-STAT 64 30ML PO SCH ×2 (08:00→18:00)
[2017-10-15 09:00] VITALS: BP 125/62
[2017-10-15] MEDS: ASCORBIC ACID 500 MG TAB PO SCH ×2 (10:00→21:57)
[2017-10-15] MEDS: MULTIPLE VITAMIN TAB PO SCH (10:00)
[2017-10-15] MEDS: ZINC SULFATE 220 MG CAP PO SCH (10:00)
[2017-10-15] MEDS: SODIUM CHLOR 0.9% PF (SALINE LOCK) 10ML VIAL IV SCH ×2 (10:00→21:56)
[2017-10-15] MEDS: ASPirin-EC 81 mg tab PO SCH (10:00)
[2017-10-15] MEDS: cefTRIAXone 1GM/10ml IVPUSH 10 ML IV SCH (10:42)
[2017-10-15] MEDS: PANTOPRAZOLE 40 MG/10 ML VIAL IV SCH (10:43)
[2017-10-15] MEDS: ENOXAPARIN SOD 30 MG/0.3 ML SYRINGE SC SCH (10:43)
[2017-10-15] MEDS: MORPHINE SULFATE 4 MG/ML SYR/VIAL IV PRN (11:41)
[2017-10-15] MEDS: DOCUSATE SOD 100 MG CAP PO PRN (11:42)
[2017-10-15 13:00] VITALS: BP 128/55
[2017-10-15 17:00] VITALS: BP 143/66
[2017-10-15 20:00] VITALS: BP 137/63
[2017-10-15] MEDS ORDERED: TPN PER PHARMACY IV NR ×13 (20:00)
[2017-10-15] MEDS: ATORVASTATIN 20 MG TAB PO SCH (21:57)
[2017-10-15 22:00] VITALS: BP 137/63
[2017-10-16] MEDS: ACCU-CHEK COMFORT CURVE STRIP VI SCH ×5 (00:14→23:46)
[2017-10-16] MEDS: InsuLIN REG 1unit/0.01ml Soln (100units/ml) SC SCH ×5 (00:17→23:47)
[2017-10-16 05:00] VITALS: BP 145/59
[2017-10-16] MEDS: metroNIDAZOLE 500MG/100ML 100 ML IV SCH ×3 (06:17→21:23)
[2017-10-16] MEDS: Boost Glucose Control 8 Ounces PO SCH ×4 (06:17→21:23)
[2017-10-16] MEDS: PRO-STAT 64 30ML PO SCH ×2 (08:00→18:00)
[2017-10-16 08:48] LABS: Alanine Aminotransferase < 6 U/L (13-56); Albumin 2.4 g/dL (3.4-5.0); Alkaline Phosphatase 39 U/L (45-117); Anion Gap 5 (5-15); Aspartate Aminotransferase 11 U/L (15-37); BUN/Creatinine Ratio 34.8; Bilirubin, Total 0.3 mg/dL (0.2-1.0); Blood Urea Nitrogen 16 mg/dL (7-18); Calcium 8.2 mg/dL (8.5-10.1); Carbon Dioxide 27 mmol/L (21-32); Chloride 106 mmol/L (98-107); GFR African American 165 mL/min; GFR Non-African American 137 mL/min; Glucose 99 mg/dL (74-106); Magnesium 1.9 mg/dL (1.6-2.6); Phosphorus 2.5 mg/dL (2.5-4.90); Potassium 3.9 mmol/L (3.5-5.1); Sodium 138 mmol/L (136-145); Total Protein 5.4 g/dL (6.4-8.2)
[2017-10-16 09:00] VITALS: BP 132/63
[2017-10-16] MEDS: cefTRIAXone 1GM/10ml IVPUSH 10 ML IV SCH (09:17)
[2017-10-16] MEDS: MULTIPLE VITAMIN TAB PO SCH (10:00)
[2017-10-16] MEDS: ASCORBIC ACID 500 MG TAB PO SCH ×2 (10:00→21:23)
[2017-10-16] MEDS: SODIUM CHLOR 0.9% PF (SALINE LOCK) 10ML VIAL IV SCH ×2 (10:00→21:23)
[2017-10-16] MEDS: ASPirin-EC 81 mg tab PO SCH (10:00)
[2017-10-16] MEDS: ZINC SULFATE 220 MG CAP PO SCH (10:00)
[2017-10-16] MEDS: PANTOPRAZOLE 40 MG/10 ML VIAL IV SCH (11:06)
[2017-10-16] MEDS: ENOXAPARIN SOD 30 MG/0.3 ML SYRINGE SC SCH (11:06)
[2017-10-16] MEDS: VANCOMYCIN 1GM/250ML 250 ML IV SCH (12:10)
[2017-10-16 13:00] VITALS: BP 146/66
[2017-10-16 17:00] VITALS: BP 150/67
[2017-10-16] MEDS ORDERED: TPN PER PHARMACY IV NR ×13 (20:00)
[2017-10-16] MEDS: ATORVASTATIN 20 MG TAB PO SCH (21:23)
[2017-10-16 22:00] VITALS: BP 150/64
[2017-10-16] MEDS: MORPHINE SULFATE 4 MG/ML SYR/VIAL IV PRN (22:58)
[2017-10-16] MEDS: DOCUSATE SOD 100 MG CAP PO PRN (23:22)
[2017-10-17 05:54] VITALS: BP 154/76
[2017-10-17] MEDS: Boost Glucose Control 8 Ounces PO SCH (05:55)
[2017-10-17] MEDS: metroNIDAZOLE 500MG/100ML 100 ML IV SCH (05:55)
[2017-10-17] MEDS: ACCU-CHEK COMFORT CURVE STRIP VI SCH (05:55)
[2017-10-17] MEDS: InsuLIN REG 1unit/0.01ml Soln (100units/ml) SC SCH (06:04)
[2017-10-17 08:59] VITALS: BP 142/74
== END 2017-10-17 10:00 | DRG 871 ==
LOC: EDBD 13:20 → ER 13:20 → TELE 13:21 → TELE-EAST 10-03 08:36
PROVIDERS: ADMIT Internal Medicine; ATTEND Family Medicine
PROC: 05H433Z Insertion of Infusion Device into Left Innominate Vein, Percutaneous Approach (ICD-10-PCS; principal; 2017-10-07)
PROC: 02HV33Z Insertion of Infusion Device into Superior Vena Cava, Percutaneous Approach (ICD-10-PCS; 2017-10-07)
DX: A41.9 Sepsis, unspecified organism (principal); E43 Unspecified severe protein-calorie malnutrition; R65.21 Severe sepsis with septic shock; L89.154 Pressure ulcer of sacral region, stage 4; G92 Toxic encephalopathy; J18.9 Pneumonia, unspecified organism; D68.9 Coagulation defect, unspecified; E11.21 Type 2 diabetes mellitus with diabetic nephropathy; E11.22 Type 2 diabetes mellitus with diabetic chronic kidney disease; J44.0 Chronic obstructive pulmonary disease with (acute) lower respiratory infection; N39.0 Urinary tract infection, site not specified; D63.8 Anemia in other chronic diseases classified elsewhere; N18.2 Chronic kidney disease, stage 2 (mild); E11.65 Type 2 diabetes mellitus with hyperglycemia; E83.52 Hypercalcemia; E86.0 Dehydration; E87.6 Hypokalemia; I12.9 Hypertensive chronic kidney disease with stage 1 through stage 4 chronic kidney disease, or unspecified chronic kidney disease; I67.2 Cerebral atherosclerosis; M19.90 Unspecified osteoarthritis, unspecified site; Z79.4 Long term (current) use of insulin; Z82.49 Family history of ischemic heart disease and other diseases of the circulatory system; Z86.73 Personal history of transient ischemic attack (TIA), and cerebral infarction without residual deficits; Z83.3 Family history of diabetes mellitus; Z90.710 Acquired absence of both cervix and uterus; Z79.899 Other long term (current) drug therapy; Z79.82 Long term (current) use of aspirin; Z90.49 Acquired absence of other specified parts of digestive tract; Z68.29 Body mass index [BMI] 29.0-29.9, adult
CPT/HCPCS: 36415; 36569; 36600; 51702; 70450; 71045; 80053; 80202; 81001; 82040; 82805; 82962; 83036; 83605; 83735; 84100; 84478; 84484; 85025; 85610; 85730; 87040; 87076; 87077; 87086; 87088; 87186; 87205; 92610; 93306; 93886; 96361; 96365; 96379; C9113; J1815; J1956; J2001; J3480; J3490; J7060; J7131; P9047